=== PATIENT | female | born 1970 | race Caucasian/White ===

== ENCOUNTER 2017-06-14 10:00 | Emergency (ER) | payer MEDICARE, MEDICAID ==
[2017-06-14] MEDS ORDERED: traMADol HCl 50 MG TAB ONE (10:22)
--- NOTE | 2017-06-14 11:00 | RAD ---
RIGHT ANKLE 3 VIEWS: Date: 06/14/17 HISTORY: Injury. Right ankle pain. FINDINGS/IMPRESSION: The ankle mortise is maintained. No acute fracture or dislocation is identified. POS: DANDRE
--- NOTE | 2017-06-14 11:05 | RAD ---
THREE VIEWS OF THE RIGHT FOOT: INDICATION: Right foot injury. 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 No acute fracture or subluxation is evident. A small bone island is seen within the talar head. Lisfranc alignment is preserved. There is mild metatarsus prima varus hallux valgus deformity of t he great toe. IMPRESSION: No acute osseous abnormality. POS: DANDRE
== END 2017-06-14 11:02 | disposition home or self-care (01) ==
LOC: NAV ERS 10:00
DX: S93.601A Unspecified sprain of right foot, initial encounter (principal); S93.401A Sprain of unspecified ligament of right ankle, initial encounter; S30.0XXA Contusion of lower back and pelvis, initial encounter; S50.02XA Contusion of left elbow, initial encounter; F41.9 Anxiety disorder, unspecified; F31.9 Bipolar disorder, unspecified; J44.9 Chronic obstructive pulmonary disease, unspecified; F17.210 Nicotine dependence, cigarettes, uncomplicated; W17.89XA Other fall from one level to another, initial encounter; Y92.69 Other specified industrial and construction area as the place of occurrence of the external cause; Y99.0 Civilian activity done for income or pay